=== PATIENT | male | born 1980 | race Caucasian/White ===

== ENCOUNTER 2017-01-04 19:17 | Emergency (ER) | payer MEDICAID, OTHER ==
[~2017-01-04] VITALS: Ht 193 cm; Wt 100.0 kg
[2017-01-04 19:23] VITALS: BP 120/80
== END 2017-01-05 00:45 | disposition left against medical advice (07) ==
LOC: ER 19:17
DX: Z53.21 Procedure and treatment not carried out due to patient leaving prior to being seen by health care provider (principal)

== ENCOUNTER 2017-02-21 20:38 | Emergency (ER) | payer OTHER ==
[~2017-02-21] VITALS: Ht 193 cm; Wt 104.0 kg
[2017-02-21 20:47] VITALS: BP 133/87
== END 2017-02-21 22:28 | disposition left against medical advice (07) ==
LOC: ER 20:38
DX: Z53.21 Procedure and treatment not carried out due to patient leaving prior to being seen by health care provider (principal)